=== PATIENT | female | born 1980 | race Caucasian/White ===

== ENCOUNTER 2020-09-14 10:07 | Outpatient (CLI) | payer OTHER, SELFPAY ==
--- NOTE | ~2020-09-14 | XR_ITS ---
EXAMINATION: XR finger 4th RT min 2V DATE: 09/14/2020 10:30 INDICATION: Injury to the right fourth digit TECHNIQUE: Dorsal palmar, lateral and 2 oblique views of the right fourth digit were obtained COMPARISON: None FINDINGS: Alignment is normal. No fracture. Joint spaces are normal. Soft tissues are unremarkable. IMPRESSION: 1. Negative right fourth digit radiographs. Reviewed, dictated and finalized at location B. HING MACHINE OPERATOR
== END 2020-09-14 10:08 | disposition home or self-care (01) ==
DX: S69.91XA Unspecified injury of right wrist, hand and finger(s), initial encounter (principal)
CPT/HCPCS: 73140

== ENCOUNTER 2021-07-04 15:16 | Outpatient (CLI) | payer OTHER, SELFPAY | END 2021-07-04 15:17 | disposition home or self-care (01) | LOC: CHSLAB 15:18 | PROVIDERS: PCP Family Medicine; Visit Provider Family Medicine | DX: R19.7 Diarrhea, unspecified (principal) | CPT/HCPCS: 87324 ==

== ENCOUNTER 2021-07-05 10:24 | Outpatient (CLI) | payer OTHER, SELFPAY | END 2021-07-05 10:25 | disposition home or self-care (01) | LOC: CHSLAB 10:25 | PROVIDERS: PCP Family Medicine; Visit Provider Family Medicine | DX: R19.7 Diarrhea, unspecified (principal) | CPT/HCPCS: 36415 ==

== ENCOUNTER 2021-08-18 13:44 | Outpatient (CLI) | payer OTHER, SELFPAY ==
[2021-08-18 18:14] LABS: SARS-CoV-2 Ag Negative (Negative)
== END 2021-08-18 13:45 | disposition home or self-care (01) ==
LOC: CHSLAB 13:46
PROVIDERS: PCP Family Medicine; Visit Provider Nurse Practitioner
DX: Z20.822 Contact with and (suspected) exposure to COVID-19 (principal)
CPT/HCPCS: 87426; C9803

== ENCOUNTER 2021-08-26 09:44 | Outpatient (CLI) | payer OTHER, SELFPAY ==
[2021-08-26 11:53] LABS: Alanine Aminotransferase 47 U/L (14-59); Albumin Level 4.2 g/dL (3.4-5.0); Alkaline Phosphatase 67 U/L (46-116); Anion Gap 10 mmol/L (8-16); Aspartate Amino Transferase 18 U/L (15-37); Bilirubin,Total 0.4 mg/dL (0.00-1.00); Blood Urea Nitrogen 11 mg/dL (7-18); Calcium 9.2 mg/dL (8.5-10.1); Carbon Dioxide 28 mmol/L (21-32); Chloride 104 mmol/L (98-108); Cholesterol 257 mg/dL (0-200); Estimated Glomerular Filt Rate > 60; Glucose 93 mg/dL (70-99); HDL Direct 58 mg/dL (40-60); LDL Cholesterol Calculated 178 mg/dL (<130); Osmolality Calculated 293 mOsm/kg (285-295); Potassium 4.6 mmol/L (3.5-5.1); Sodium 142 mmol/L (136-145); Total Protein 7.6 g/dL (6.4-8.2); Triglycerides 103 mg/dL (0-150)
== END 2021-08-26 09:45 | disposition home or self-care (01) ==
LOC: CHSLAB 09:48
PROVIDERS: PCP Family Medicine; Visit Provider Physician Assistant
DX: E78.5 Hyperlipidemia, unspecified (principal)
CPT/HCPCS: 36415; 80053; 80061

== ENCOUNTER 2021-10-12 07:55 | Outpatient (CLI) | payer OTHER, SELFPAY ==
--- NOTE | 2021-10-17 09:58 | P.METCHAL_ITS ---
Methacholine Procedure Perform Procedure Performed Methacholine Challenge Methacholine Challenge Methacholine Challenge: DOS: 10/12/2021 REQUESTING: Tino Arredondo NP REASON FOR TESTING: Asthma METHACHOLINE CHALLENGE This test was conducted according to the 2017 technical standard endorsed by the [employer]. A baseline spirometry prior to the methacholine challenge showed pre- bronchodilator FEV1 83%, 2.37 L which is normal. FVC was 99%, normal. FEV1/FVC ratio is 82%, normal. The EES38-77% was decreased at 42%. There was no increase in any of the flows after bronchodilator. The spirometry data is acceptable and reproducible. The patient was exposed to sequentially increasing doses of methacholine in a quadrupling dosage procedure. The methacholine dose was delivered [employer] nebulizer using the a 1-,minute tidal breathing protocol. All testing was completed with optimal patient effort and cooperation. The best post- methacholine FEV1 values were used to determine the change from the post diluent FEV1. The delivered dose of methacholine was used to calculate the provocative dose causing a 20% fall in FEV1 (PD20). The patient had a 19% drop in the FEV1 after the second dose. The test was stopped after the third dose with a drop of 52% in the FEV1 with complaints of feeling very uncomfortable, tightness, hoarseness, wheezing, and coughing. These symptoms resolved after albuterol. A decrease of 20% in the FEV1 is a positive result, and the testing was term inated. Flows returned to normal after bronchodilator, albuterol 2.5 mg/3 mL) was administered. The BMI is 35.74. Level 0 - saline for baseline testing Level 1 - 0.0625 mg/ml Level 2 - 0.25 mg/ml Level 3 - 1 mg/ml IMPRESSION: This is a positive methacholine challenge with the PD20 1 mg/mL on the third dose. The best use for a methacholine challenge is to rule out asthma. Clinical correlation is advised. Anum Dupree MD
== END 2021-10-12 07:56 | disposition home or self-care (01) ==
LOC: CHSCARD 07:58
PROVIDERS: PCP Family Medicine; Visit Provider Physician Assistant
DX: J45.909 Unspecified asthma, uncomplicated (principal)
CPT/HCPCS: 94070; 94726; 94729; J7674

== ENCOUNTER 2022-10-25 09:03 | Outpatient (CLI) | payer OTHER, SELFPAY ==
[2022-10-25 09:49] LABS: Cholesterol 226 mg/dL (0-200); HDL Direct 59 mg/dL (40-60); LDL Cholesterol Calculated 152 mg/dL (<130); Triglycerides 77 mg/dL (0-150)
== END 2022-10-25 09:04 | disposition home or self-care (01) ==
LOC: CHSLAB 09:05
PROVIDERS: PCP Family Medicine; Visit Provider Physician Assistant
DX: E78.5 Hyperlipidemia, unspecified (principal)
CPT/HCPCS: 36415; 80061

== ENCOUNTER 2023-02-02 11:27 | Outpatient (CLI) | payer OTHER, SELFPAY ==
[2023-02-02 12:27] LABS: Alanine Aminotransferase 28 U/L (14-59); Albumin Level 4.1 g/dL (3.4-5.0); Alkaline Phosphatase 68 U/L (46-116); Aspartate Amino Transferase 20 U/L (15-37); Bilirubin Direct 0.1 mg/dL (0-0.2); Bilirubin,Total 0.5 mg/dL (0.00-1.00); Total Protein 7.4 g/dL (6.4-8.2)
[2023-02-02 12:33] LABS: HIV 1 P24 AG Negative (Negative); HIV 1/2 AB Negative (Negative)
[2023-02-06 12:26] LABS: RPR Screen Non-Reactive (Non-Reactive)
[2023-02-07 19:23] LABS: Hepatitis A Antibody IgM Nonreactive; Hepatitis B Core Antibody Nonreactive (Nonreactive); Hepatitis B Surface Antigen Nonreactive (Nonreactive); Hepatitis C Virus Antibody Nonreactive
== END 2023-02-02 11:28 | disposition home or self-care (01) ==
PROVIDERS: PCP Family Medicine; Visit Provider Physician Assistant
DX: Z11.3 Encounter for screening for infections with a predominantly sexual mode of transmission (principal)
CPT/HCPCS: 36415; 80074; 80076; 86592; 86703; 87491; 87591

== ENCOUNTER 2023-07-27 07:55 | Outpatient (CLI) | payer OTHER, SELFPAY ==
[2023-07-27 09:01] LABS: HIV 1 P24 AG Negative (Negative); HIV 1/2 AB Negative (Negative)
[2023-07-27 14:08] LABS: Chlamydia trachomatis NOT DETECTED (NOT DETECTE); Neisseria gonorrhoeae PCR NOT DETECTED (NOT DETECTE)
[2023-08-01 08:10] LABS: RPR Screen Non-Reactive (Non-Reactive)
== END 2023-07-27 07:56 | disposition home or self-care (01) ==
LOC: CHSLAB 07:56
PROVIDERS: PCP Family Medicine; Visit Provider Physician Assistant
DX: Z11.3 Encounter for screening for infections with a predominantly sexual mode of transmission (principal)
CPT/HCPCS: 36415; 86592; 87491; 87591; 87806

== ENCOUNTER 2023-12-10 08:21 | Outpatient (CLI) | payer OTHER, SELFPAY ==
[2023-12-10 09:27] LABS: Cholesterol 216 mg/dL (0-200); HDL Direct 62 mg/dL (40-60); LDL Cholesterol Calculated 143 mg/dL (<130); Triglycerides 53 mg/dL (0-150)
== END 2023-12-10 08:22 | disposition home or self-care (01) ==
LOC: CHSLAB 08:25
PROVIDERS: PCP Physician Assistant; Visit Provider Physician Assistant
DX: E78.5 Hyperlipidemia, unspecified (principal)
CPT/HCPCS: 36415; 80061

== ENCOUNTER 2025-02-24 09:48 | Outpatient (CLI) | payer MEDICAID, SELFPAY ==
--- OUTSIDE RECORDS SUMMARY | 2025-02-24 09:58 | XMS_ITS | Continuity of Care Document ---
Author Organization [facility] Address [address] [place] [address] Phone Care Team Providers Care Unit Leader Name Role Phone Management, Case Unavailable Unavailable Procedures Procedure Date DISEASE MANAGEMENT PROGRAM, FOLLOW-UP/RE ASSESSMENT HEPATITIS C ANTIBODY ANTIBODY; HIV-1 AND HIV-2, SINGLE ASSAY Antibody; Treponema pallidum Advance Directives Directive Yes / No Effective Date File Name No Information Encounters Encounter Description Practice Location Reason(s) For Visit Diagnoses Date Provider Providers Copied on Encounter [facility], [address], [place], [place], [address] , tel: [phone] [facility] No Information 5 Management Case. [address], [place], [place], [address], . tel:[phone] [facility], [address], [place], [place], [address] , tel: [phone] [facility] HIV/STI Testing (chief complaint) Encntr screen for infections w sexl mode of transmissEncounter for screening for human immunodeficiency virusEncounter for screening for other viral diseases 4 Management Case. [address], [place], [place], [address], . tel:[phone] Family History Family Member Type Diagnosis Age At Onset No Information Payers Payer name Insurance type Covered democrat ID Authoriza tifroilan(s) G - HRSA HIV Prevention 09 Social History Type Description Quantity Date Captured Comments Sex Female Smoking Status No Information Sexual Orientation Something else, plea se describe (Other) Gender Identity Female Chief Complaint And Reason For Visit No Information Reason For Referral Reason For Referral No Information History Of Present Illness Encounter Date Complaint History Of Prese nt Illness HIV/STI Testing Patient was offe red rapid HIV, syphilis, and Hep C testing on 06/10/2024 at [facility] ([facility]). Results were as follows:Rapid HIV: NegativeRapid syphilis: NegativeRapid Hepatitis C: NegativeThe patient was given a copy of test results. Functional Status Date Functional Assessmen t No Information Instructions Date Instruction Additional Infor mation No Information Assessments Type Assessment Date No Information Patient Care Teams Name Effective Dates (start - stop) Status Members No Information
--- OUTSIDE RECORDS SUMMARY | 2025-02-24 09:59 | XMS_ITS | Encounter Summary ---
Author Organization [facility] Address [facility] [place] [address] Care Team Providers Care Gluer Machine Setup Operator Name Role Phone Carlos Alves MD Primary Care Provider [phone] Reason for Referral * Sleep Lab (Routine) - New Request Specialty Diagnoses / Procedures Referred By German sorenson Referred To Contact Diagnoses Snoring Procedures Sleep Study Unattended (Home Study) (05866) Patricia Arredondo PA-C [address] [address] Phone: tel: fax: Referral ID Status Reason Start Date Expiration Date V isits Requested Visits Authorized [id number] New Request 02/05/2025 03/09/2026 1 1 Encounter Details Date Type Department Care Team (Late st Contact Info) Description 02/05/2025 Transcribe Orders [facility] Pre Access Team [address] [place] [address] Patricia Arredondo PA-C [address] [place] [address] Social History Tobacco Use Types Packs/Day Years Used Date Smoking Tobacco: Never Assessed Comments Unknown Sex and Gender Information Value Date Recorded Sex Assigned at Not on file 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 Gender Identity Not on file Sexual Orientation Not on file documented as of this encounter Plan of Treatment Scheduled Orders Name Type Priority Associated Diagnoses Orde r Schedule Sleep Study Unattended (Home Study) (60952) Sleep Center Routine Snoring 1 Occurrences starting 02/05/2025 until 02/05/2026 documented as of this encounter Visit Diagnoses Diagnosis Snoring- Primary Other dyspnea and respiratory abnormality documented in this encounter Care Teams Gluer Machine Setup Operator Relationship Specialty Start Date End Date Carlos Alves MD [address] [place] [address] PCP - General FAMILY PRACTICE 01/25/19 documented as of this encounter
--- OUTSIDE RECORDS SUMMARY | 2025-02-24 09:59 | XMS_ITS | Encounter Summary ---
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
--- OUTSIDE RECORDS SUMMARY | 2025-02-24 09:59 | XMS_ITS | Clinical Summary ---
Author Organization [facility] Address [facility] [place] [address] Care Team Providers Care Product Handler Name Role Phone Carlos Alves MD Primary Care Provider [phone] Encounters Date Type Department Care Team Description 02/05/2025 Transcribe Orders [facility] Pre Access Team [address] [place] [address] Patricia Arredondo PA-C from Last 3 Months Social History Tobacco Use Types Packs/Day Years Used Date Smoking Tobacco: Never Assessed Comments Unknown Sex and Gender Information Value Date Recorded Sex Assigned at Not on file 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 Gender Identity Not on file Sexual Orientation Not on file Plan of Treatment Health Maintenance Due Date Last Done Comments Cervical Cancer Screening Pa p Smear (Age 30 to 64) Every 3 Years 1981 Annual Physical 1984 Hepatitis C 1999 DTaP, Tdap and Td Vaccines ( 1 - Tdap) 2000 Hepatitis B Vaccines (1 of 3 - 19+ 3-dose series) 2000 Cervical Cancer Screening Pa p with HPV Testing (Age 30 to 64) Every 5 Years 2011 Cervical Cancer Screening with HPV 2011 Mammogram Screening 2021 COVID-19 Vaccine ( - 2023-2 5 season) 2024 HPV Vaccines Aged Out No longer eligi ble based on patient's age to complete this topic Meningococcal B Vaccine Aged Out No l onger eligible based on patient's age to complete this topic Meningococcal Vaccine Aged Out No anthony kendall eligible based on patient's age to complete this topic Pneumococcal Vaccine: Pediat rics (0 to 5 Years) and At-Risk Patients (6 to 49 Years) Aged Out No longer eligible b ased on patient's age to complete this topic RSV Immunizations Under 20 Months Aged Out No longer eligible based on patient's age to complete this topic Care Teams Product Handler Relationship Specialty Start Date End Date Carlos Alves MD [address] [place] [place] [address] PCP - General FAMILY PRACTICE 01/25/19
[2025-02-24 10:32] LABS: Cholesterol 227 mg/dL (0-200); HDL Direct 55 mg/dL; Triglycerides 116 mg/dL (<150)
== END 2025-02-24 09:49 | disposition home or self-care (01) ==
PROVIDERS: PCP Family Medicine; Visit Provider Physician Assistant
DX: E78.5 Hyperlipidemia, unspecified (principal)
CPT/HCPCS: 36415; 80061